=== PATIENT | female | born 1935 | race Caucasian/White ===

== ENCOUNTER → 2017-03-30 | Outpatient (CLI) | payer MEDICARE | END | disposition home or self-care (01) | LOC: LAB 13:05 | PROVIDERS: ATTEND Internal Medicine Cardiovascular Disease | DX: R06.09 Other forms of dyspnea (principal) | CPT/HCPCS: 36415; 83880 ==

== ENCOUNTER → 2020-07-28 | Outpatient (CLI) | payer MEDICARE ==
--- NOTE | 2020-07-28 16:22 | RAD ---
EXAM: AP pelvis, AP and lateral views left hip DATE: 07/28/2020 12:00 AM INDICATION: Reason: S/P LEFT HIP HEMIARTHROPLASTY / Spl. Instructions: / History: COMPARISON: 06/12/2020 FINDINGS/ IMPRESSION: 1. Changes of left total hip arthroplasty, in stable alignment without definite hardware complication or associated fracture. Acetabular cup is in a somewhat horizontal orientation, stable. 2. SI joint degenerative changes are seen. 3. Right hip joint osteoarthritis with mild joint space narrowing and associated femoral head/neck junction osteophytes. 4. Degenerative changes of lower lumbar spine. Electronically signed by: Vincent Sanchez MD (07/28/2020 4:19 PM) [facility]
== END ==
LOC: DXRAD 13:18
PROVIDERS: ATTEND Physician Assistant
DX: M25.552 Pain in left hip (principal); M16.11 Unilateral primary osteoarthritis, right hip; M25.751 Osteophyte, right hip; M47.816 Spondylosis without myelopathy or radiculopathy, lumbar region; M46.1 Sacroiliitis, not elsewhere classified; Z96.642 Presence of left artificial hip joint
CPT/HCPCS: 73502